=== PATIENT | male | born 1960 | race African-American/Black ===

== ENCOUNTER 2021-09-08 08:35 | Outpatient (CLI) | payer OTHER ==
--- NOTE | 2021-09-08 10:03 | XRay Report ---
RIGHT KNEE 2 VIEWS INDICATION: RIGHT KNEE PAIN. COMPARISON: None. IMPRESSION: No acute osseous or soft tissue abnormality. Mild medial compartment osteoarthritic c hanges are identified. Mild tibial spine spurring. Small joint effusion is suspected on the lateral i mage. Signer Name: Zan Delcid Jr, MD Signed: 09/08/2021 9:59 AM Workstation Name: [id number]
--- NOTE | 2021-09-08 10:04 | XRay Report ---
LUMBOSACRAL SPINE 3 VIEWS INDICATION: BACK PAIN. COMPARISON: None. IMPRESSION: Normal alignment. No significant degenerative disc disease. There is mild facet arthrop athy throughout the lumbar region. The SI joints are unremarkable. No acute osseous or soft tissue a bnormality. Signer Name: Zan Delcid Jr, MD Signed: 09/08/2021 10:00 AM Workstation Name: [id number]
== END 2021-09-08 08:36 | disposition home or self-care (01) ==
LOC: XRAY 08:35
PROVIDERS: ATTEND Internal Medicine
DX: M17.11 Unilateral primary osteoarthritis, right knee (principal); M77.31 Calcaneal spur, right foot; M54.16 Radiculopathy, lumbar region
CPT/HCPCS: 72100

== ENCOUNTER 2022-01-16 23:45 | Emergency (ER) | payer OTHER ==
--- NOTE | 2022-01-17 00:34 | Emergency Department Report ---
ED General Adult HPI - General Chief complaint: Abdominal Pain Stated complaint: TROUBLE URINATING Time Seen by Provider: 01/17/22 00:18 Source: patient, RN notes reviewed Mode of arrival: Ambulatory Limitations: Language Barrier - History of Present Illness Initial comments: The patient was evaluated in the emergency department for symptoms described in the history of present illness. He/she was evaluated in the context of the global COVID-19 pandemic, which necessitated consideration that the patient might be at risk for infection with the virus that causes COVID-19. Institutional protocols and algorithms that pertain to the evaluation of patients at risk for COVID-19 are in a state of rapid change based on information released by regulatory bodies including the CDC and federal and state organizations. These policies and algorithms were followed during the patient's care in the emergency department. Please note that these policies, procedures and recommendations changed on a rapid basis. 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 The patient had a Vega catheter placed in the emergency room, which immediately improved his symptoms. The patient also complains of "anal swelling". The patient specifically denies headache, neck pain, chest pain, abdominal pain, shortness of breath, vomiting, diarrhea, extremity weakness and numbness and ataxia. He has chronic back pain which is essentially at his baseline. After placement of the Vega catheter, the patient reports that he feels like he is at his baseline -: This evening Consistency: constant Improves with: other (Placement of Vega cath) Worsens with: none - Related Data Previous Rx's Medication Instructions Recorded Last Taken Type Docusate Sodium [Colace CAP] 100 mg PO BID #60 capsule 01/17/22 Unknown Rx Psyllium Husk/Laxative No.1 [Colox 750 mg PO QDAY #30 cap 01/17/22 Unknown Rx 750 mg Capsule] Allergies Allergy/AdvReac Type Severity Reaction Status Date / Time No Known Allergies Allergy Unverified 01/16/22 23:59 ED Review of Systems ROS: Stated complaint: TROUBLE URINATING Other details as noted in HPI Constitutional: denies: fever Eyes: denies: eye discharge ENT: denies: epistaxis Respiratory: denies: cough Cardiovascular: denies: chest pain Gastrointestinal: abdominal pain, constipation Genitourinary: denies: dysuria, testicular pain Musculoskeletal: back pain (Chronic) Neurological: denies: weakness, numbness ED Past Medical Hx - Past Medical History Previous Medical History?: Yes Hx Diabetes: Yes Additional medical history: Chronic Pain - Surgical History Past Surgical History?: Yes - Social History Smoking Status: Never Smoker - Medications Home Medications: Home Medications Medication Instructions Recorded Confirmed Last Taken Type Docusate Sodium [Colace CAP] 100 mg PO BID #60 capsule 01/17/22 Unknown Rx Psyllium Husk/Laxative No.1 [Colox 750 mg PO QDAY #30 cap 01/17/22 Unknown Rx 750 mg Capsule] ED Physical Exam - General Limitations: Language Barrier General appearance: alert, in no apparent distress - Head Head exam: Present: atraumatic, normocephalic - Eye Eye exam: Present: normal appearance, EOMI. Absent: nystagmus - ENT ENT exam: Present: normal exam, normal orophraynx, mucous membranes moist, normal external ear exam - Neck Neck exam: Present: normal inspection, full ROM. Absent: tenderness, meningismus - Respiratory Respiratory exam: Present: normal lung sounds bilaterally. Absent: respiratory distress, wheezes, rales, rhonchi, stridor, decreased breath sounds - Cardiovascular Cardiovascular Exam: Present: regular rate, normal rhythm, normal heart sounds. Absent: bradycardia, tachycardia, irregular rhythm, systolic murmur, diastolic murmur, rubs, gallop - GI/Abdominal GI/Abdominal exam: Present: soft. Absent: distended, tenderness, guarding, rebound, rigid, pulsatile mass - Rectal Rectal exam: Present: normal inspection, hemorrhoids (External hemorrhoids noted.), other (Chaperoned by nurse Melissa Kline) - exam: Present: normal inspection. Absent: testicular tenderness External exam: Present: normal external exam (There is normal testicular lie. There is normal cremasteric reflex. There is no testicular tenderness. There is no testicular swelling), other (Chaperoned by Melissa Kline) - Extremities Exam Extremities exam: Present: full ROM, other (2+ pulses noted in the bilateral upper and lower extremities. There is no palpable cord. negative Homans sign. Muscular compartments are soft. The pelvis is stable.). Absent: normal inspection (Chronic venous stasis changes noted in the bilateral lower extremities), pedal edema, calf tenderness - Back Exam Back exam: Present: normal inspection, paraspinal tenderness. Absent: tenderness, CVA tenderness (R), CVA tenderness (L), muscle spasm, vertebral tenderness - Neurological Exam Neurological exam: Present: alert, oriented X3, normal gait, reflexes normal, other (No facial droop. Tongue midline. Extraocular movements intact bilaterally. Facial sensation intact to light touch in V1, V2, V3 distribution bilaterally. 5 and a 5 strength in 4 extremities. Sensation intact to light touch in 4 extremities.). Absent: motor sensory deficit - Psychiatric Psychiatric exam: Present: anxious - Skin Skin exam: Present: warm, dry, intact, normal color. 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 12/19/2021 12/18/2021 1 Morphine Sulfate Ir 15 Mg Tab 90.00 30 Ma Fee [id number] Kro ([id number]) 0 45.00 M[facility] Comm [place] 11/16/2021 11/15/2021 1 Acetaminophen-Cod #4 Tablet 90.00 30 An [place] [id number] Kro ([id number]) 0 27.00 [place] 09/21/2021 09/20/2021 1 Hydrocodone-Acetamin 10-325 Mg 120.00 30 Ma Fee [id number] Kro ([id number]) 0 40.00 [place] 08/24/2021 08/23/2021 1 Hydrocodone-Acetamin 7.5-325 120.00 30 Ma Fee [id number] Kro ([id number]) 0 30.00 [place] 07/26/2021 07/26/2021 1 Tramadol Hcl 50 Mg Tablet 90.00 30 An [place] [id number] Kro ([id number]) 0 15.00 MME Comm Ins Reevaluation #2: 01/17/22 01:21 Differential diagnosis, including but not limited to: Urinary retention, constipation, external hemorrhoids, chronic narcotic use Assessment and plan: 61-year-old gentleman, who is afebrile, with reassuring vital signs, resolved tachycardia, elevated blood pressure likely secondary to pain and constipation, not acutely symptomatic, please reference the [employer] clinical policy on asymptomatic hypertension, who is likely presenting with opioid-induced constipation, as well as concomitant urinary retention. He is ambulatory with a steady gait, and has appropriate strength, sensation and reflexes, with no pulsatile abdominal mass. AAA/aortic pathology very unlikely. Acute epidural compression syndrome very unlikely. Start patient on bulk forming laxative, as well as docusate. Vega catheter leg bag, patient had immediate return of 400 cc of clear yellow urine with placement of Vega catheter. Using Prydeinig telecommunications technician, advised patient that he would need to follow-up with an outpatient urologist for trial of void. Patient is improved after these initial interventions and is suitable to follow- up as an outpatient. Sitz baths and diet lifestyle modifications for external hemorrhoids 01/17/22 03:20 Urinalysis not consistent with urinary tract infection. E. Patient walking around the department and in no acute distress. Discharged with outpatient follow-up 01/17/22 03:20 - Pulse Oximetry Interpretation Digit-Finger Initial Pulse Oximetry Readin O2 Sat by Pulse Oximetry: 98 Actions Taken: none ED Medical Decision Making - Lab Data Vital Signs 01/16/22 01/17/22 01/17/22 23:50 01:03 01:10 Temperature 98.7 F 98.2 F Pulse Rate 109 H 86 Respiratory 18 18 18 Rate Blood Pressure 184/103 Blood Pressure 155/82 [Right] O2 Sat by Pulse 99 96 Oximetry Vital Signs 01/16/22 01/17/22 01/17/22 23:50 01:03 01:10 Temperature 98.7 F 98.2 F Pulse Rate 109 H 86 Respiratory 18 18 18 Rate Blood Pressure 184/103 Blood Pressure 155/82 [Right] O2 Sat by Pulse 99 96 Oximetry O2 Sat by Pulse Oximetry [ Digit-Finger] 01/17/22 01:29 Temperature Pulse Rate Respiratory Rate Blood Pressure Blood Pressure [Right] O2 Sat by Pulse Oximetry O2 Sat by Pulse 98 Oximetry [ Digit-Finger] Lab Results 01/17/22 Range/Units 01:14 Urine Color Straw (Yellow) Urine Turbidity Clear (Clear) Urine pH 5.0 (5.0-7.0) Ur Specific [place] 1.022 (1.003-1.030) Urine Protein <15 mg/dl (Negative) mg/dL Urine Glucose (UA) >=500 (Negative) mg/dL Urine Ketones Neg (Negative) mg/dL Urine Blood Neg (Negative) Urine Nitrite Neg (Negative) Urine Bilirubin Neg (Negative) Urine Urobilinogen < 2.0 (<2.0) mg/dL Ur Leukocyte Esterase Neg (Negative) Urine WBC (Auto) < 1.0 (0.0-6.0) /HPF Urine RBC (Auto) < 1.0 (0.0-6.0) /HPF Critical care attestation.: If time is entered above; I have spent that time in minutes in the direct care of this critically ill patient, excluding procedure time. ED Disposition Clinical Impression: Urinary retention, Constipation, External hemorrhoid Disposition: HOME / SELF CARE / HOMELESS Is pt being admited?: No Does the pt Need Aspirin: No Condition: Stable Instructions: Indwelling Urinary Catheter Care, Adult, How to Take a Sitz Bath, Acute Urinary Retention, Male Additional Instructions: Patient received morphine prescription at the beginning of January, and is likely experiencing opioid-induced constipation, which in turn is likely causing urinary retention. Consume plenty of fiber, vegetables, and lean protein, as well as plenty of green vegetables. Take the docusate and psyllium husk as directed, and keep the Vega catheter in place to leg bag. Patient may use a sitz bath as often as as needed for external hemorrhoids. We recommend follow-up with a urologist, such as those at [facility], for urinary retention, within the next week. Urine cultures were sent today, and results will be available within the next week. Please have your primary care doctor or urologist contact the medical record department to obtain culture results. Please follow-up with a primary care doctor within the next month for routine medical care. Please continue current outpatient medications otherwise. Please return to the emergency room right away with new pain, worsened pain, migration of pain, projectile vomiting, change in mental status, confusion, inability tolerate liquid feeds, new, worsened or different symptoms not present on the initial emergency room evaluation B?nh nhn nh?n ??n roger?c morphin vo ??u thng 3 v c kh? n?ng b? to bn do opioid gy ra, do ? c kh? n?ng gy b ti?u. ?n will?u ch?t x?, trey v protein n?c c?ng nh? will?u trey xanh. L?y v? tr?u docusate v psyllium celio ch? d?n, v gi? ?ng thng Vega c? ??nh vo ti chn. B?nh nhn c th? ngm mnh stephen b?n t?m th??ng xuyn n?u c?n ??i v?i b?nh tr? lopez?i. Chng ti khuyn b?n nn ti khm v?i bc s? ti?t ni?u, ch?ng h?n nh? bc s? t?i juan pablo ti?t ni?u Candelario, ?? bi?t tnh tr?ng b ti?u, stephen vng tu?n t?i. Cc m?u c?y n??c ti?u ?c g?i hm nay v k?t qu? s? c stephen tu?n t?i. Vui lng ritchie c?u bc s? ch?m sc chnh ho?c chuyn karma ti?t ni?u c?a b?n diego h? v?i b? ph?n h? s? y t? ?? l?y k?t qu? nui c?y. Vui lng ti khm v?i bc s? ch?m sc chnh stephen thng t?i ?c ch?m sc y t? ??nh k?. Vui lng ti?p t?c cc lo?i roger?c lopez?i tr hi?n t?i n?u khng. Vui lng tr? l?i phng c?p c?u ngay l?p t?c v?i c?n ?au m?i, c?n ?au n?ng h?n, c?n ?au di stewart?n, nn m?a do ??n b?n, thay ??i tr?ng thi bailey th?n, l l?n, khng th? dung n?p th?c ?n l?ng, cc tri?u ch?ng m?i, n?ng h?n ho?c khc khng c stephen ?nh gi ban ??u t?i phng c?p c?u Prescriptions: Docusate Sodium [Colace CAP] 100 mg PO BID #60 capsule Psyllium Husk/Laxative No.1 [Colox 750 mg Capsule] 750 mg PO QDAY #30 cap Referrals: [facility] [Provider Group] - 3-5 Days [facility] [Provider Group] - 3-5 Days
[2022-01-17] MEDS ORDERED: oxyCODONE /ACETAMINOPHEN 5-325MG TAB PO ONE (00:53)
[2022-01-17 01:16] VITALS: BP 155/82
[2022-01-17 02:00] LABS: Bilirubin,Urine NEG (Negative); Blood,Urine NEG (Negative); Color,Urine Straw (Yellow); Protein,Urine <15 mg/dL mg/dL (Negative); Urobilinogen,Urine < 2.0 mg/dL (<2.0); WBC,Urine < 1.0 /HPF (0.0-6.0)
[2022-01-17 02:01] LABS: RBC,Urine < 1.0 /HPF (0.0-6.0)
== END 2022-01-17 04:25 | disposition home or self-care (01) ==
LOC: ED 23:45
DX: R33.9 Retention of urine, unspecified (principal); K64.4 Residual hemorrhoidal skin tags; K59.00 Constipation, unspecified; E11.9 Type 2 diabetes mellitus without complications
CPT/HCPCS: 51702; 81001; 87086; 99283